=== PATIENT | female | born 1975 | race African-American/Black ===

== ENCOUNTER 2017-06-05 11:25 | Emergency (ER) | payer OTHER ==
[2017-06-05 11:58] VITALS: BP 121/82
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
--- NOTE | 2017-06-05 14:02 | XRay Report ---
LUMBOSACRAL SPINE, 3 VIEWS: History: Back pain Findings: The vertebral bodies, disk spaces and posterior elements are intact. No compression deformity or malalignment. Mild degenerative changes are noted. The SI joints are symmetric and unremarkable. Impression: 1. No evidence for acute injury to the lumbar spine.
== END 2017-06-05 14:15 | disposition home or self-care (01) ==
LOC: ED 11:25
DX: S39.012A Strain of muscle, fascia and tendon of lower back, initial encounter (principal); V49.49XA Driver injured in collision with other motor vehicles in traffic accident, initial encounter; Y93.89 Activity, other specified; Y92.89 Other specified places as the place of occurrence of the external cause; Y99.8 Other external cause status
CPT/HCPCS: 72100; 99283

== ENCOUNTER 2020-01-31 07:44 | Inpatient (IN) | payer BC, OTHER, SELFPAY ==
--- NOTE | 2020-01-31 09:21 | Emergency Department Report ---
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 11 days ago patient developed fever that was not breaking with Tylenol. Patient went to a [facility] testing site on January 22 and had a positive COVID test at that time. Patient has been self isolating from family members. Yesterday she developed worsening cough productive of th ick sputum with dyspnea. Today she complains of significant dyspnea with walking even 10 steps. Patient noted to have a room air saturation 89% during initial triage. Patient also having intermittent right-sided rib pain described as a tightness patient denies past medical history and is a non-smoker - Related Data Home Medications Medication Instructions Recorded Confirmed Last Taken No Known Home Medications [No 01/31/20 01/31/20 Unknown Reported Home Medications] Allergies Allergy/AdvReac Type Severity Reaction Status Date / Time No Known Allergies Allergy Unverified 01/31/20 08:17 ED Review of Systems ROS: Stated complaint: POSITIVE COVID 19 /COUGH Other details as noted in HPI Comment: All other systems reviewed and negative ED Past Medical Hx - Past Medical History Previous Medical History?: No - Surgical History Past Surgical History?: No - Social History Smoking Status: Never Smoker Substance Use Type: None - Medications Home Medications: Home Medications Medication Instructions Recorded Confirmed Last Taken Type No Known Home Medications [No 01/31/20 01/31/20 Unknown History Reported Home Medications] ED Physical Exam - General Limitations: No Limitations - Other Other exam information: General: No acute distress Head: Atraumatic Eyes: normal appearance ENT: Moist mucous membranes Neck: Normal appearance, no midline tenderness Chest: Clear to auscultation bilaterally CV: Regular rate and rhythm Abdomen: Soft, normal bowel sounds, nontender, nondistended, no rebound or guarding Back: Normal inspection Extremity: Normal inspection, full range of motion Neuro: Alert O x 3, no facial asymmetry, speech clear, no gross motor sensory deficit Psych: Appropriate behavior Skin: No rash ED Course Vital Signs 01/31/20 01/31/20 01/31/20 08:00 08:30 09:30 Temperature 98.7 F Pulse Rate 107 H 98 H 94 H Respiratory 18 25 H 29 H Rate Blood Pressure 108/65 108/75 110/74 O2 Sat by Pulse 97 98 96 Oximetry 01/31/20 01/31/20 01/31/20 10:00 10:30 11:00 Temperature Pulse Rate 90 97 H 85 Respiratory 29 H 16 30 H Rate Blood Pressure 112/68 112/68 108/67 O2 Sat by Pulse 98 98 97 Oximetry ED Medical Decision Making - Lab Data Result diagrams: 01/31/20 09:47 01/31/20 09:47 Lab Results 01/31/20 01/31/20 01/31/20 Range/Units 09:47 09:47 09:47 WBC 5.6 (4.5-11.0) K/mm3 RBC 4.81 (3.65-5.03) M/mm3 Hgb 12.4 (10.1-14.3) gm/dl Hct 38.0 (30.3-42.9) % MCV 79 (79-97) fl MCH 26 L (28-32) pg MCHC 33 (30-34) % RDW 14.6 (13.2-15.2) % Plt Count 301 (140-440) K/mm3 Lymph % (Auto) 11.6 L (13.4-35.0) % [place] % (Auto) 5.4 (0.0-7.3) % Eos % (Auto) 0.0 (0.0-4.3) % Baso % (Auto) 1.1 (0.0-1.8) % Lymph # 0.6 L (1.2-5.4) K/mm3 [place] # 0.3 (0.0-0.8) K/mm3 Eos # 0.0 (0.0-0.4) K/mm3 Baso # 0.1 (0.0-0.1) K/mm3 Seg Neutrophils % 81.9 H (40.0-70.0) % Seg Neutrophils # 4.6 (1.8-7.7) K/mm3 D-Dimer 354.34 H (0-234) ng/mlDDU Sodium 134 L (137-145) mmol/L Potassium 3.6 (3.6-5.0) mmol/L Chloride 98.0 (98-107) mmol/L Carbon Dioxide 22 (22-30) mmol/L Anion Gap 18 mmol/L BUN 7 (7-17) mg/dL Creatinine 0.7 (0.7-1.2) mg/dL Estimated GFR > 60 ml/min BUN/Creatinine Ratio 10 % Glucose 115 H (65-100) mg/dL Calcium 8.6 (8.4-10.2) mg/dL Ferritin (13.0-400.0) ng/mL Lactate Dehydrogenase 378 H (91-180) units/L C-Reactive Protein 21.30 H (0.00-1.30) mg/dL HCG, Qual (Negative) 01/31/20 01/31/20 Range/Units 09:47 09:47 WBC (4.5-11.0) K/mm3 RBC (3.65-5.03) M/mm3 Hgb (10.1-14.3) gm/dl Hct (30.3-42.9) % MCV (79-97) fl MCH (28-32) pg MCHC (30-34) % RDW (13.2-15.2) % Plt Count (140-440) K/mm3 Lymph % (Auto) (13.4-35.0) % [place] % (Auto) (0.0-7.3) % Eos % (Auto) (0.0-4.3) % Baso % (Auto) (0.0-1.8) % Lymph # (1.2-5.4) K/mm3 [place] # (0.0-0.8) K/mm3 Eos # (0.0-0.4) K/mm3 Baso # (0.0-0.1) K/mm3 Seg Neutrophils % (40.0-70.0) % Seg Neutrophils # (1.8-7.7) K/mm3 D-Dimer (0-234) ng/mlDDU Sodium (137-145) mmol/L Potassium (3.6-5.0) mmol/L Chloride (98-107) mmol/L Carbon Dioxide (22-30) mmol/L Anion Gap mmol/L BUN (7-17) mg/dL Creatinine (0.7-1.2) mg/dL Estimated GFR ml/min BUN/Creatinine Ratio % Glucose (65-100) mg/dL Calcium (8.4-10.2) mg/dL Ferritin 645.8 H (13.0-400.0) ng/mL Lactate Dehydrogenase (91-180) units/L C-Reactive Protein (0.00-1.30) mg/dL HCG, Qual Negative (Negative) - Radiology Data Radiology results: report reviewed, image reviewed (cxr: b/l infiltrates) CHEST 1 VIEW INDICATION: covid + hypoxia, sob. COMPARISON: None FINDINGS: Support devices: None. Heart: Within normal limits. Lungs/Pleura: There is poor inspiration. Subtle patchy bilateral airspace densities are identified concerning for atypical pneumonia or viral infection. No consolidation, large pleural effusion or pneumothorax. Additional findings: None. IMPRESSION: Bilateral patchy infiltrates as described. 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 Positive COVID test 1 week ago with worsening dyspnea and hypoxia upon ED presentation. Chest x-ray shows bilateral infiltrates. COVID order set ordered. Cultures pending. Rocephin and azithromycin ordered. Hospitalist informed for admission. Dr. Mendez request admission to Dr. BAUTISTA - Differential Diagnosis Pneumonia, COVID Critical Care Time: No Critical care attestation.: If time is entered above; I have spent that time in minutes in the direct care of this critically ill patient, excluding procedure time. ED Disposition Clinical Impression: COVID-19, Bilateral pulmonary infiltrates on CXR, Hypoxia Disposition: OP ADMIT IP TO THIS HOSP Is pt being admited?: Yes Condition: Stable Time of Disposition: 10:43 (Dr Bautista/hosp)
[2020-01-31 10:08] LABS: Basophils # (Auto) 0.1 K/mm3 (0.0-0.1); Basophils % (Auto) 1.1 % (0.0-1.8); Hemoglobin 12.4 gm/dl (10.1-14.3); Lymphocytes # (Auto) 0.6 K/mm3 (1.2-5.4); Lymphocytes % (Auto) 11.6 % (13.4-35.0); Mean Corpuscular HGB Conc 33 % (30-34); Mean Corpuscular Volume 79 fl (79-97); Monocytes # (Auto) 0.3 K/mm3 (0.0-0.8); Monocytes % (Auto) 5.4 % (0.0-7.3); Platelet Count 301 K/mm3 (140-440); Red Blood Count 4.81 M/mm3 (3.65-5.03); Red Cell Distribution Width 14.6 % (13.2-15.2)
[2020-01-31 10:22] LABS: BUN/Creatinine Ratio 10; Blood Urea Nitrogen 7 mg/dL (7-17); Calcium 8.6 mg/dL (8.4-10.2); Hemolysis Index 1
--- NOTE | 2020-01-31 10:47 | History and Physical Report ---
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 who presented to the hospital with complaint of shortness of breath worse with exertion according to her "I cannot walk 10 steps without getting significantly short of breath or recurrent cough. She reports that her symptoms started 11 days ago after she developed fever that did not resolve with Tylenol she went ahead and got tested at the [facility] testing site for COVID-19 on January 22 and tested positive she self isolated from family but unfortunately has been having worsening cough with productive sputum and ass ociated diarrhea. She reports that following the diarrhea she did take 2 tablets of ciprofloxacin with no resolution. She denies any chest pain nausea vomiting she denies any chills but reports fever. She does have intermittent right-sided pain with the cough and she states that when she coughs it feels like she is in unbearable pain. Is a lifelong non-smoker. Past History Past Medical History: No medical history Past Surgical History: No surgical history Social history: , full code. denies: smoking, alcohol abuse Family history: no significant family history Medications and Allergies Allergies Allergy/AdvReac Type Severity Reaction Status Date / Time No Known Allergies Allergy Unverified 01/31/20 08:17 Home Medications Medication Instructions Recorded Confirmed Last Taken Type No Known Home Medications [No 01/31/20 01/31/20 Unknown History Reported Home Medications] Active Meds: Active Medications Ceftriaxone Sodium (Rocephin/Ns 2 Gm/100 Ml) 2 gm in 100 mls @ 200 mls/hr IV Q24HR DENICE; Protocol Azithromycin 500 mg/ Sodium (Chloride) 250 mls @ 250 mls/hr IV Q24HR DENICE; Protocol Review of Systems Constitutional: fever, fatigue, weakness Cardiovascular: chest pain, shortness of breath, dyspnea on exertion Respiratory: cough with sputum, shortness of breath, dyspnea on exertion Exam - Physical Exam Narrative exam: VITAL SIGNS: Reviewed. GENERAL: The patient appears normally developed, appears lethargic and ill. Vital signs as documented. HEAD: No signs of head trauma. EYES: Pupils are equal. Extraocular motions intact. EARS: Hearing grossly intact. MOUTH: Oropharynx is normal. NECK: No adenopathy, no JVD. CHEST: Chest with clear breath sounds bilaterally. Otherwise shallow breaths. No wheezes, rales, or rhonchi. CARDIAC: Regular rate and rhythm. S1 and S2, without murmurs, gallops, or rubs. VASCULAR: No Edema. Peripheral pulses normal and equal in all extremities. ABDOMEN: Soft, non tender and non distended. No rebound or guarding, and no masses palpated. Bowel Sounds normal. MUSCULOSKELETAL: Good range of motion of all major joints. Extremities without clubbing, cyanosis or edema. NEUROLOGIC EXAM: Alert and oriented x 3 No focal sensory or strength deficits. Speech normal. Follows commands. PSYCHIATRIC: Mood normal. SKIN: detial exam as documented in skin assessment - Constitutional Vitals: Temp Pulse Resp BP Pulse Ox 98.7 F 94 H 29 H 110/74 96 01/31/20 08:00 01/31/20 09:30 01/31/20 09:30 01/31/20 09:30 01/31/20 09:30 Results - Labs CBC & Chem 7: 01/31/20 09:47 01/31/20 09:47 Labs: Laboratory Last Values WBC 5.6 K/mm3 (4.5-11.0) 01/31/20 09:47 RBC 4.81 M/mm3 (3.65-5.03) 01/31/20 09:47 Hgb 12.4 gm/dl (10.1-14.3) 01/31/20 09:47 Hct 38.0 % (30.3-42.9) 01/31/20 09:47 MCV 79 fl (79-97) 01/31/20 09:47 MCH 26 pg (28-32) L 01/31/20 09:47 MCHC 33 % (30-34) 01/31/20 09:47 RDW 14.6 % (13.2-15.2) 01/31/20 09:47 Plt Count 301 K/mm3 (140-440) 01/31/20 09:47 Lymph % (Auto) 11.6 % (13.4-35.0) L 01/31/20 09:47 [place] % (Auto) 5.4 % (0.0-7.3) 01/31/20 09:47 Eos % (Auto) 0.0 % (0.0-4.3) 01/31/20 09:47 Baso % (Auto) 1.1 % (0.0-1.8) 01/31/20 09:47 Lymph # 0.6 K/mm3 (1.2-5.4) L 01/31/20 09:47 [place] # 0.3 K/mm3 (0.0-0.8) 01/31/20 09:47 Eos # 0.0 K/mm3 (0.0-0.4) 01/31/20 09:47 Baso # 0.1 K/mm3 (0.0-0.1) 01/31/20 09:47 Seg Neutrophils % 81.9 % (40.0-70.0) H 01/31/20 09:47 Seg Neutrophils # 4.6 K/mm3 (1.8-7.7) 01/31/20 09:47 D-Dimer 354.34 ng/mlDDU (0-234) H 01/31/20 09:47 Sodium 134 mmol/L (137-145) L 01/31/20 09:47 Potassium 3.6 mmol/L (3.6-5.0) 01/31/20 09:47 Chloride 98.0 mmol/L (98-107) 01/31/20 09:47 Carbon Dioxide 22 mmol/L (22-30) 01/31/20 09:47 Anion Gap 18 mmol/L 01/31/20 09:47 BUN 7 mg/dL (7-17) 01/31/20 09:47 Creatinine 0.7 mg/dL (0.7-1.2) 01/31/20 09:47 Estimated GFR > 60 ml/min 01/31/20 09:47 BUN/Creatinine Ratio 10 % 01/31/20 09:47 Glucose 115 mg/dL (65-100) H 01/31/20 09:47 Calcium 8.6 mg/dL (8.4-10.2) 01/31/20 09:47 Ferritin 645.8 ng/mL (13.0-400.0) H 01/31/20 09:47 Lactate Dehydrogenase 378 units/L (91-180) H 01/31/20 09:47 C-Reactive Protein 21.30 mg/dL (0.00-1.30) H 01/31/20 09:47 HCG, Qual Negative (Negative) 05/04/20 09:47 - Imaging and Cardiology Chest x-ray: image reviewed (Bilateral pulmonary infiltrate) Assessment and Plan Assessment and plan: 44-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 11 days ago patient developed fever that was not breaking with Tylenol. Patient went to a [facility] testing site on January 22 and had a positive COVID test at that time. Patient has been self isolating from family members. Yesterday she developed worsening cough productive of thick sputum with dyspnea. Today she complains of sign ificant dyspnea with walking even 10 steps. Patient noted to have a room air saturation 89% during initial triage. Patient also having intermittent right- sided rib pain described as a tightness patient denies past medical history and is a non-smoker COVID 19+ Acute respiratory failure with hypoxia secondary to COVID-19 Acute bilateral viral pneumonia Diarrhea likely secondary to COVID-19 which is also a gastro-pulmonary virus, rule out C. difficile Pleuritic chest pain related to cough-costochondritis Plan Admit to [facility] COVID 19 UNIT COVID19 PROTOCOL AND LABS Q48 HRS CHECK COAGULATION PROFILE PULMONARY AND ID CONSULT OXYGEN PAIN CONTROL R/O C.DIFF DVT/GI PROPHY PLAN OF CARE DISCUSSED WITH THE PATIENT CARE DISCUSSED WITH CONSULTANTS
[2020-01-31] MEDS ORDERED: ONDANSETRON 4 MG/2 ML INJ IV PRN (10:48)
[2020-01-31] MEDS ORDERED: DEXTROSE 50% IN WATER (25GM) 50 ML SYRINGE IV PRN (10:48)
[2020-01-31] MEDS ORDERED: ACETAMINOPHEN 325 MG TAB PO PRN (10:48)
--- NOTE | 2020-01-31 10:48 | XRay Report ---
CHEST 1 VIEW INDICATION: covid + hypoxia, sob. COMPARISON: None FINDINGS: Support devices: None. Heart: Within normal limits. Lungs/Pleura: There is poor inspiration. Subtle patchy bilateral airspace densities are identified co ncerning for atypical pneumonia or viral infection. No consolidation, large pleural effusion or pneum othorax. Additional findings: None. IMPRESSION: Bilateral patchy infiltrates as described. Signer Name: Sabas Dias Jr, MD Signed: 01/31/2020 10:43 AM Workstation Name: [id number]
[2020-01-31] MEDS ORDERED: AZITHROMYCIN 500 MG in SODIUM CHLORIDE 0.9% 250ML 250 ML IV SCH (11:00)
[2020-01-31] MEDS ORDERED: cefTRIAXone/NS 2 GM/100 ML 2 GM/100 ML BAG IV SCH (11:00)
[2020-01-31] MEDS ORDERED: LOPERAMIDE 2 MG CAP PO PRN (11:21)
[2020-01-31] MEDS ORDERED: cefTRIAXone/NS 2 GM/100 ML 2 GM/100 ML BAG IV ONE (11:38)
[2020-01-31] MEDS: FAMOTIDINE 20 MG TAB PO SCH ×2 (12:37→22:08)
[2020-01-31] MEDS: guaiFENesin DM 200/20 MG ORAL LIQD 10 ML PO PRN (13:00)
--- NOTE | 2020-01-31 14:05 | Consultation ---
History of Present Illness - Reason for Consult Consult date: 01/31/20 - History of Present Illness 44-year-old female no past medical history admitted to the hospital due to a recent COVID-19 test that was positive. She complains of worsening shortness of breath and fever which began approximately 11 days prior to admission. 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 Since her positive test she has been self isolate from family members. The day prior to admission she developed worsening cough with sputum production which prompted her presentation to the hospital. She was found to be hypoxic on room air, and as such was admitted. Febrile to 100.6 with a white count of 6 and an associated lymphopenia. She is currently receiving ceftriaxone and azithromycin. Blood cultures currently pending. Imaging personally reviewed: Chest x-ray: Bilateral patchy infiltrates Review of Systems: Bold if positive, otherwise negative General: fevers, chills, rigors HEENT: visual disturbance, diplopia, eye pain Respiratory: cough, sputum, hemoptysis, shortness of breath Cardiovascular: chest pain, syncope Gastrointestinal: nausea, vomiting, diarrhea, abdominal pain Genitourinary: dysuria, hematuria, flank pain Musculoskeletal: neck pain, back pain, joint pain, edema Neurologic: headaches, seizures Hematologic: easy bruising or bleeding Endocrine: night sweats, acute weight loss Skin: rash, jaundice, redness Psychiatric: suicidal, homicidal ideation Past History Past Medical History: No medical history Past Surgical History: No surgical history Social history: no significant social history Family history: no significant family history Medications and Allergies Allergies Allergy/AdvReac Type Severity Reaction Status Date / Time No Known Allergies Allergy Unverified 01/31/20 08:17 Home Medications Medication Instructions Recorded Confirmed Last Taken Type No Known Home Medications [No 01/31/20 01/31/20 Unknown History Reported Home Medications] Active Meds: Active Medications Acetaminophen (Tylenol) 650 mg PO Q4H PRN PRN Reason: Pain MILD(1-3)/Fever >100.5/HASKINS Albuterol (Proventil) 2.5 mg IH Q4HRT PRN PRN Reason: Shortness Of Breath Azithromycin (Zithromax) 500 mg PO QDAY DENICE Stop: 02/04/20 10:01 Dextrose (D50w (25gm) Syringe) 50 ml IV Q30MIN PRN; Protocol PRN Reason: Hypoglycemia Famotidine (Pepcid) 20 mg PO BID [facility] Last Admin: 01/31/20 12:37 Dose: 20 mg Documented by: Guaifenesin (Guaifenesin Dm Syrup) 10 ml PO Q4H PRN PRN Reason: Cough Ceftriaxone Sodium (Rocephin/Ns 2 Gm/100 Ml) 2 gm in 100 mls @ 200 mls/hr IV Q24HR DENICE; Protocol Last Admin: 01/31/20 11:42 Dose: 200 mls/hr Documented by: Azithromycin 500 mg/ Sodium (Chloride) 250 mls @ 250 mls/hr IV Q24HR DENICE; Protocol Stop: 01/31/20 20:00 Last Admin: 01/31/20 12:36 Dose: 250 mls/hr Documented by: Loperamide HCl (Imodium) 2 mg PO Q2H PRN PRN Reason: Diarrhea Ondansetron HCl (Zofran) 4 mg IV Q4H PRN PRN Reason: Nausea And Vomiting Sodium Chloride (Sodium Chloride Flush Syringe 10 Ml) 10 ml IV BID [facility] Sodium Chloride (Sodium Chloride Flush Syringe 10 Ml) 10 ml IV PRN PRN PRN Reason: LINE FLUSH Physical Examination - Physical Exam Narrative exam: Physical exam deferred due to PPE conservation strategy, reviewed in chart. - Constitutional Vitals: Vital Signs Temp Pulse Resp BP Pulse Ox 100.6 F H 98 H 20 117/74 96 01/31/20 12:26 01/31/20 12:26 01/31/20 12:26 01/31/20 12:26 01/31/20 12:26 Temperature -Last 24 Hours Temperature 100.6 F Temperature 98.7 F Results - Labs CBC & Chem 7: 01/31/20 09:47 01/31/20 09:47 Labs: Abnormal lab results 01/31/20 01/31/20 01/31/20 Range/Units 09:47 09:47 09:47 MCH 26 L (28-32) pg Lymph % (Auto) 11.6 L (13.4-35.0) % Lymph # 0.6 L (1.2-5.4) K/mm3 Seg Neutrophils % 81.9 H (40.0-70.0) % D-Dimer 354.34 H (0-234) ng/mlDDU Sodium 134 L (137-145) mmol/L Glucose 115 H (65-100) mg/dL Ferritin (13.0-400.0) ng/mL Lactate Dehydrogenase 378 H (91-180) units/L C-Reactive Protein 21.30 H (0.00-1.30) mg/dL 01/31/20 Range/Units 09:47 MCH (28-32) pg Lymph % (Auto) (13.4-35.0) % Lymph # (1.2-5.4) K/mm3 Seg Neutrophils % (40.0-70.0) % D-Dimer (0-234) ng/mlDDU Sodium (137-145) mmol/L Glucose (65-100) mg/dL Ferritin 645.8 H (13.0-400.0) ng/mL Lactate Dehydrogenase (91-180) units/L C-Reactive Protein (0.00-1.30) mg/dL Assessment and Plan Cultures: Blood culture 01/31/2020 pending A/P: 44-year-old female no past medical history admitted with COVID-19 #COVID-19: Patient with normal profile and previously diagnosed COVID-19. Recommend stopping antibiotics at this time. Continue supportive care for now given that she has minimal oxygen requirements. Her laboratory markers are elevated, so if she starts requiring more oxygen therapy in a short period of time will consider Actemra. Please ensure anticoagulation in place. Recs: -Continue supportive care COVID-19 -Monitor oxygen requirements, if they double to 4 L within 12 hours will consider Actemra at that time. -Follow COVID-19 labs to include LDH, ferritin, CRP, d-dimer every 48 hours to monitor for disease progression Thank you for the consult, we will continue to follow. MD Padmini [facility] M: [phone] O: [phone] F: [phone]
[2020-01-31 14:27] LABS: C-Reactive Protein 22.6 mg/dL (0.00-1.30)
[2020-01-31] MEDS: ALBUTEROL 2.5 MG/3 ML NEBU IH PRN (14:44)
[2020-02-01] MEDS: ALBUTEROL 2.5 MG/3 ML NEBU IH PRN (01:26)
[2020-02-01] MEDS: guaiFENesin DM 200/20 MG ORAL LIQD 10 ML PO PRN ×3 (01:43→21:52)
[2020-02-01 05:10] LABS: Basophils % (Auto) 0.3 % (0.0-1.8); Hematocrit 32.5 % (30.3-42.9); Hemoglobin 10.7 gm/dl (10.1-14.3); Lymphocytes # (Auto) 1.1 K/mm3 (1.2-5.4); Lymphocytes % (Auto) 19.3 % (13.4-35.0); Mean Corpuscular HGB Conc 33 % (30-34); Mean Corpuscular Volume 78 fl (79-97); Monocytes # (Auto) 0.5 K/mm3 (0.0-0.8); Monocytes % (Auto) 8.8 % (0.0-7.3); Platelet Count 307 K/mm3 (140-440); Red Blood Count 4.18 M/mm3 (3.65-5.03); Red Cell Distribution Width 14.4 % (13.2-15.2)
[2020-02-01 05:24] LABS: BUN/Creatinine Ratio 12; Blood Urea Nitrogen 6 mg/dL (7-17); Calcium 8.3 mg/dL (8.4-10.2); Hemolysis Index 2
--- NOTE | 2020-02-01 08:09 | Progress Note ---
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 11 days ago patient developed fever that was not breaking with Tylenol. Patient went to a [facility] site on January 22 and had a positive COVID test at that time. Patient has been self isolating from family members. Yesterday she developed worsening cough productive of thick sputum with dyspnea. Today she complains of significant dyspnea with walking even 10 steps. Patient noted to have a room air saturation 89% during initial triage. Patient also having intermittent right-sided rib pain described as a tightness patient denies past medical history and is a non-smoker --Positive COVID test today --COVID 19+[done outside the hospital] Contact and droplet isolation Follow inflammatory markers per protocol Coagulation profile Pulmonary and ID following Supportive care --Acute hypoxic respiratory failure ; Oxygen titrate O2 sats to more than 90% Supportive care, pulmonary following --Acute bilateral viral pneumonia; IV fluids, oxygen, supportive care --Pleuritic chest pain related to cough-costochondritis and viral pneumonia Pain management and oxygen --Diarrhea probably secondary to COVID-19 which is also a gastro-pulmonary virus, rule out C. difficile --Mild hypotension; blood pressures in the lower range Encourage plenty oral fluids, IV fluids, monitor closely --DVT prophylaxis; Lovenox Monitor closely and adjust management as needed Follow inflammatory markers Follow consultants evaluation and recommendations Critical care time 35 minutes History Interval history: Patient seen and examined in isolation room Isolation precautions observed I used my PPE while examining the patient Patient was initially positive outside the hospital Admitted with symptoms COVID PCR test repeated today, reported positive Hospitalist Physical - Constitutional Vitals: Temp Pulse Resp BP Pulse Ox 97.3 F L 84 20 97/63 95 02/01/20 05:49 02/01/20 05:49 02/01/20 05:49 02/01/20 05:49 02/01/20 05:49 General appearance: Present: mild distress, well-nourished - EENT Eyes: Present: PERRL, EOM intact - Neck Neck: Present: supple, normal ROM - Respiratory Respiratory effort: normal Respiratory: bilateral: diminished, rhonchi, negative: rales, wheezing - Cardiovascular Rhythm: regular Heart Sounds: Present: S1 & S2 - Extremities Extremities: no ischemia, No edema - Abdominal General gastrointestinal: soft, non-tender, non-distended, normal bowel sounds - Integumentary Integumentary: Present: clear, warm - Psychiatric Psychiatric: appropriate mood/affect, cooperative - Neurologic Neurologic: moves all extremities Results - Labs CBC & Chem 7: 02/01/20 04:17 02/01/20 04:17 Labs: Laboratory Last Values WBC 5.6 K/mm3 (4.5-11.0) 02/01/20 04:17 RBC 4.18 M/mm3 (3.65-5.03) 02/01/20 04:17 Hgb 10.7 gm/dl (10.1-14.3) 02/01/20 04:17 Hct 32.5 % (30.3-42.9) 02/01/20 04:17 MCV 78 fl (79-97) L 02/01/20 04:17 MCH 26 pg (28-32) L 02/01/20 04:17 MCHC 33 % (30-34) 02/01/20 04:17 RDW 14.4 % (13.2-15.2) 02/01/20 04:17 Plt Count 307 K/mm3 (140-440) 02/01/20 04:17 Lymph % (Auto) 19.3 % (13.4-35.0) 02/01/20 04:17 Isabel[place] % (Auto) 8.8 % (0.0-7.3) H 02/01/20 04:17 Eos % (Auto) 0.0 % (0.0-4.3) 02/01/20 04:17 Baso % (Auto) 0.3 % (0.0-1.8) 02/01/20 04:17 Lymph # 1.1 K/mm3 (1.2-5.4) L 02/01/20 04:17 Isabela # 0.5 K/mm3 (0.0-0.8) 02/01/20 04:17 Eos # 0.0 K/mm3 (0.0-0.4) 02/01/20 04:17 Baso # 0.0 K/mm3 (0.0-0.1) 02/01/20 04:17 Seg Neutrophils % 71.6 % (40.0-70.0) H 02/01/20 04:17 Seg Neutrophils # 4.0 K/mm3 (1.8-7.7) 02/01/20 04:17 D-Dimer 363.09 ng/mlDDU (0-234) H 01/31/20 12:50 Sodium 135 mmol/L (137-145) L 02/01/20 04:17 Potassium 3.4 mmol/L (3.6-5.0) L 02/01/20 04:17 Chloride 97.7 mmol/L (98-107) L 02/01/20 04:17 Carbon Dioxide 24 mmol/L (22-30) 02/01/20 04:17 Anion Gap 17 mmol/L 02/01/20 04:17 BUN 6 mg/dL (7-17) L 02/01/20 04:17 Creatinine 0.5 mg/dL (0.7-1.2) L 02/01/20 04:17 Estimated GFR > 60 ml/min 02/01/20 04:17 BUN/Creatinine Ratio 12 % 02/01/20 04:17 Glucose 105 mg/dL (65-100) H 02/01/20 04:17 Calcium 8.3 mg/dL (8.4-10.2) L 02/01/20 04:17 Ferritin 571.5 ng/mL (13.0-400.0) H 02/01/20 04:17 Lactate Dehydrogenase 346 units/L (91-180) H 02/01/20 04:17 C-Reactive Protein 18.40 mg/dL (0.00-1.30) H 02/01/20 04:17 Procalcitonin 0.13 ng/mL (<0.15) 01/31/20 12:50 HCG, Qual Negative (Negative) 01/31/20 09:47 Microbiology: Microbiology 01/31/20 12:50 Peripheral/Venous Blood Culture - Preliminary Culture in Progress 01/31/20 09:47 Peripheral/Venous Blood Culture - Preliminary Culture in Progress 01/31/20 09:47 Peripheral/Venous Blood Culture - Preliminary Culture in Progress Vasquez/IV: Voiding Method Toilet IV Catheter Type [Left Hand] INT / Saline Lock Active Medications - Current Medications Current Medications: Generic Name Dose Route Start Last Admin Trade Name Freq PRN Reason Stop Dose Admin Acetaminophen 650 mg 01/31/20 10:48 Tylenol PO Q4H PRN Pain MILD(1-3)/Fever >100.5/HASKINS Albuterol 2.5 mg 01/31/20 10:48 02/01/20 01:26 Proventil IH 2.5 mg Q4HRT PRN Administration Shortness Of Breath Dextrose 50 ml 01/31/20 10:48 D50w (25gm) Syringe IV Q30MIN PRN Hypoglycemia Protocol Famotidine 20 mg 01/31/20 12:00 01/31/20 22:08 Pepcid PO 20 mg BID DENICE Administration Guaifenesin 10 ml 01/31/20 12:43 02/01/20 01:43 Guaifenesin Dm Syrup PO 10 ml Q4H PRN Administration Cough Hydrocodone Bit/Homatropine Methylb 10 ml 01/31/20 14:06 Hydromet PO Q6H PRN Cough Loperamide HCl 2 mg 01/31/20 11:21 Imodium PO Q2H PRN Diarrhea Ondansetron HCl 4 mg 01/31/20 10:48 Zofran IV Q4H PRN Nausea And Vomiting Sodium Chloride 10 ml 01/31/20 22:00 01/31/20 22:08 Sodium Chloride Flush Syringe 10 Ml IV 10 ml BID DENICE Administration Sodium Chloride 10 ml 01/31/20 10:48 Sodium Chloride Flush Syringe 10 Ml IV PRN PRN LINE FLUSH
[2020-02-01] MEDS: FAMOTIDINE 20 MG TAB PO SCH ×2 (09:19→21:51)
[2020-02-01] MEDS: SODIUM CHLORIDE 0.9% 1000 ML 1,000 ML IV SCH ×2 (09:20→18:41)
[2020-02-01] MEDS ORDERED: AZITHROMYCIN 250 MG TAB PO SCH (10:00)
--- NOTE | 2020-02-01 11:26 | Consultation ---
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 Per chart patient's test is a few weeks old as she tested positive and then isolated herself. She presents to the ED with worsening shortness of breath and chest tightness. All inflammatory markers were elevated on admission but appear to be trending down. Past History Past Medical History: No medical history Past Surgical History: No surgical history Social history: , full code. denies: smoking, alcohol abuse Family history: no significant family history Medications and Allergies Allergies Allergy/AdvReac Type Severity Reaction Status Date / Time No Known Allergies Allergy Unverified 01/31/20 08:17 Home Medications Medication Instructions Recorded Confirmed Last Taken Type No Known Home Medications [No 01/31/20 01/31/20 Unknown History Reported Home Medications] Active Meds: Active Medications Acetaminophen (Tylenol) 650 mg PO Q4H PRN PRN Reason: Pain MILD(1-3)/Fever >100.5/HASKINS Albuterol (Proventil) 2.5 mg IH Q4HRT PRN PRN Reason: Shortness Of Breath Last Admin: 02/01/20 01:26 Dose: 2.5 mg Documented by: Dextrose (D50w (25gm) Syringe) 50 ml IV Q30MIN PRN; Protocol PRN Reason: Hypoglycemia Enoxaparin Sodium (Enoxaparin) 40 mg SUB-Q QDAY@2200 DENICE Famotidine (Pepcid) 20 mg PO BID [facility] Last Admin: 02/01/20 09:19 Dose: 20 mg Documented by: Guaifenesin (Guaifenesin Dm Syrup) 10 ml PO Q4H PRN PRN Reason: Cough Last Admin: 02/01/20 09:19 Dose: 10 ml Documented by: Hydrocodone Bit/Homatropine Methylb (Hydromet) 10 ml PO Q6H PRN PRN Reason: Cough Sodium Chloride (Nacl 0.9% 1000 Ml) 1,000 mls @ 100 mls/hr IV DIRECT DENICE Last Admin: 02/01/20 09:20 Dose: 100 mls/hr Documented by: Loperamide HCl (Imodium) 2 mg PO Q2H PRN PRN Reason: Diarrhea Ondansetron HCl (Zofran) 4 mg IV Q4H PRN PRN Reason: Nausea And Vomiting Sodium Chloride (Sodium Chloride Flush Syringe 10 Ml) 10 ml IV BID [facility] Last Admin: 02/01/20 09:20 Dose: 10 ml Documented by: Sodium Chloride (Sodium Chloride Flush Syringe 10 Ml) 10 ml IV PRN PRN PRN Reason: LINE FLUSH Review of Systems All systems: negative Physical Examination Vital signs: Vital Signs Temp Pulse Resp BP Pulse Ox 98.7 F 107 H 18 108/65 97 01/31/20 08:00 01/31/20 08:00 01/31/20 08:00 01/31/20 08:00 01/31/20 08:00 General appearance: no acute distress, alert Eyes: non-icteric ENT: oropharynx moist Neck: supple, no JVD Effort: mildly labored Ascultation: Bilateral: clear Percussion: Bilateral: not dull Tactile fremitus: Bilateral: normal Cardiovascular: regular rate and rhythm Results - Laboratory Findings CBC and BMP: 02/01/20 04:17 02/01/20 04:17 PT/INR, D-dimer D-Dimer 363.09 ng/mlDDU (0-234) H 01/31/20 12:50 Abnormal lab findings: Abnormal Labs 01/31/20 01/31/20 01/31/20 09:47 09:47 09:47 MCV MCH 26 L Lymph % (Auto) 11.6 L [place] % (Auto) Lymph # 0.6 L Seg Neutrophils % 81.9 H D-Dimer 354.34 H Sodium 134 L Potassium Chloride BUN Creatinine Glucose 115 H Calcium Ferritin Lactate Dehydrogenase 378 H C-Reactive Protein 21.30 H 01/31/20 01/31/20 01/31/20 09:47 12:50 12:50 MCV MCH Lymph % (Auto) [place] % (Auto) Lymph # Seg Neutrophils % D-Dimer 363.09 H Sodium Potassium Chloride BUN Creatinine Glucose 112 H Calcium Ferritin 645.8 H Lactate Dehydrogenase 410 H C-Reactive Protein 22.60 H 01/31/20 02/01/20 02/01/20 12:50 04:17 04:17 MCV 78 L MCH 26 L Lymph % (Auto) [place] % (Auto) 8.8 H Lymph # 1.1 L Seg Neutrophils % 71.6 H D-Dimer Sodium 135 L Potassium 3.4 L Chloride 97.7 L BUN 6 L Creatinine 0.5 L Glucose 105 H Calcium 8.3 L Ferritin 624.5 H Lactate Dehydrogenase 346 H C-Reactive Protein 18.40 H 02/01/20 04:17 MCV MCH Lymph % (Auto) [place] % (Auto) Lymph # Seg Neutrophils % D-Dimer Sodium Potassium Chloride BUN Creatinine Glucose Calcium Ferritin 571.5 H Lactate Dehydrogenase C-Reactive Protein - Diagnostic Findings Chest x-ray: image reviewed (Poor inspiratory film) Assessment and Plan 44 y/o female with positive covid test and hypoxemia. 1. Continue periodic day proning and proning at night 2. Given her history of rib pain, maybe reasonable to consider weight based lovenox therapy with her as oppose to regular prophylactic dosing 3. Continue to monitor oxygen requirement closely. 4. No IVF's. encourage PO intake and try to run the patient closer to volume deplete side.
--- NOTE | 2020-02-01 13:06 | Progress Note ---
Assessment and Plan Cultures: Blood culture 01/31/2020 pending A/P: 44-year-old female no past medical history admitted with COVID-19 #COVID-19: Patient with normal profile and previously diagnosed COVID-19. Recommend stopping antibiotics at this time. Continue supportive care for now given that she has minimal oxygen requirements. Her laboratory markers are elevated, so if she starts requiring more oxygen therapy in a short period of time will consider Actemra. Please ensure anticoagulation in place. Recs: -Continue supportive care COVID-19 -Monitor oxygen requirements, if they double to 4 L within 12 hours will consider Actemra at that time. -Follow COVID-19 labs to include LDH, ferritin, CRP, d-dimer every 48 hours to monitor for disease progression - improving. -d-dimer slightly above 1.5x UL, as such would consider weight based anti-coag with Lovenox. Thank you for the consult, we will continue to follow. Ching Reed MD [facility] M: [phone] O: [phone] F: [phone] Subjective Date of service: 02/01/20 Interval history: Patient now afebrile, with decreasing inflammatory markers. No new issues at this time. Objective - Exam Narrative Exam: Physical exam deferred due to PPE conservation strategy, reviewed in chart. - Constitutional Vitals: Vital Signs Temp Pulse Resp BP Pulse Ox 99.7 F H 80 22 101/69 99 02/01/20 11:42 02/01/20 11:42 02/01/20 11:42 02/01/20 11:42 02/01/20 11:42 Temperature -Last 24 Hours Temperature 99.7 F Temperature 97.3 F Temperature 98.5 F Temperature 100.1 F - Labs CBC & Chem 7: 02/01/20 04:17 02/01/20 04:17 Labs: Abnormal lab results 01/31/20 01/31/20 01/31/20 Range/Units 12:50 12:50 12:50 MCV (79-97) fl MCH (28-32) pg [place] % (Auto) (0.0-7.3) % Lymph # (1.2-5.4) K/mm3 Seg Neutrophils % (40.0-70.0) % D-Dimer 363.09 H (0-234) ng/mlDDU Sodium (137-145) mmol/L Potassium (3.6-5.0) mmol/L Chloride (98-107) mmol/L BUN (7-17) mg/dL Creatinine (0.7-1.2) mg/dL Glucose 112 H (65-100) mg/dL Calcium (8.4-10.2) mg/dL Ferritin 624.5 H (13.0-400.0) ng/mL Lactate Dehydrogenase 410 H (91-180) units/L C-Reactive Protein 22.60 H (0.00-1.30) mg/dL 02/01/20 02/01/20 02/01/20 Range/Units 04:17 04:17 04:17 MCV 78 L (79-97) fl MCH 26 L (28-32) pg [place] % (Auto) 8.8 H (0.0-7.3) % Lymph # 1.1 L (1.2-5.4) K/mm3 Seg Neutrophils % 71.6 H (40.0-70.0) % D-Dimer (0-234) ng/mlDDU Sodium 135 L (137-145) mmol/L Potassium 3.4 L (3.6-5.0) mmol/L Chloride 97.7 L (98-107) mmol/L BUN 6 L (7-17) mg/dL Creatinine 0.5 L (0.7-1.2) mg/dL Glucose 105 H (65-100) mg/dL Calcium 8.3 L (8.4-10.2) mg/dL Ferritin 571.5 H (13.0-400.0) ng/mL Lactate Dehydrogenase 346 H (91-180) units/L C-Reactive Protein 18.40 H (0.00-1.30) mg/dL
[2020-02-01] MEDS: ENOXAPARIN 40 MG/0.4 ML INJ SUB-Q SCH (21:51)
[2020-02-02] MEDS: HYDROcodone/HOMATROPINE 5-1.5MG /5 ML ORAL LIQD UNIT DOSE PO PRN ×2 (00:16→23:54)
[2020-02-02] MEDS: guaiFENesin DM 200/20 MG ORAL LIQD 10 ML PO PRN (04:22)
[2020-02-02] MEDS: SODIUM CHLORIDE 0.9% 1000 ML 1,000 ML IV SCH (04:23)
[2020-02-02 05:15] LABS: Alanine Aminotransferase 80 units/L (7-56); Albumin 2.7 g/dL (3.9-5); BUN/Creatinine Ratio 10; Blood Urea Nitrogen 5 mg/dL (7-17); Calcium 7.9 mg/dL (8.4-10.2); Hemolysis Index 12
--- NOTE | 2020-02-02 08:43 | Progress Note ---
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 11 days ago patient developed fever that was not breaking with Tylenol. Patient went to a [facility] site on January 22 and had a positive COVID test at that time. Patient has been self isolating from family members. Yesterday she developed worsening cough productive of thick sputum with dyspnea. Today she complains of significant dyspnea with walking even 10 steps. Patient noted to have a room air saturation 89% during initial triage. Patient also having intermittent right-sided rib pain described as a tightness patient denies past medical history and is a non-smoker --Positive COVID test -02/01/2020 --Acute hypoxic respiratory failure ; Oxygen titrate O2 sats to more than 90% Supportive care, pulmonary following --COVID 19+[done outside the hospital] Rpt Covid 19 test positive Contact and droplet isolation Follow inflammatory markers per protocol Coagulation profile, Pulmonary and ID following Supportive care --Acute bilateral viral pneumonia; IV fluids, oxygen, supportive care --Pleuritic chest pain related to cough-costochondritis and viral pneumonia Pain management and oxygen --Diarrhea probably secondary to COVID-19 which is also a gastro-pulmonary virus, rule out C. difficile --Mild hypotension; blood pressures in the lower range Encourage plenty oral fluids, IV fluids, monitor closely --DVT prophylaxis; Lovenox Monitor closely and adjust management as needed History Interval history: Patient seen and examined in isolation room Isolation protocols, PPE protocols followed Patient feels slightly better still has some cough and shortness of breath Afebrile, vital signs reviewed Hospitalist Physical - Constitutional Vitals: Temp Pulse Resp BP Pulse Ox 98.4 F 75 18 109/71 94 02/02/20 04:22 02/02/20 04:22 02/02/20 04:22 02/02/20 04:22 02/02/20 04:22 General appearance: Present: no acute distress, well-nourished - EENT Eyes: Present: PERRL, EOM intact - Neck Neck: Present: supple, normal ROM - Respiratory Respiratory effort: normal Respiratory: bilateral: diminished, rhonchi, negative: rales, wheezing - Cardiovascular Rhythm: regular Heart Sounds: Present: S1 & S2 - Extremities Extremities: no ischemia, No edema - Abdominal General gastrointestinal: soft, non-tender, non-distended, normal bowel sounds - Integumentary Integumentary: Present: clear, warm - Psychiatric Psychiatric: appropriate mood/affect, cooperative - Neurologic Neurologic: moves all extremities Results - Labs CBC & Chem 7: 02/01/20 04:17 02/02/20 04:03 Labs: Laboratory Last Values WBC 5.6 K/mm3 (4.5-11.0) 02/01/20 04:17 RBC 4.18 M/mm3 (3.65-5.03) 02/01/20 04:17 Hgb 10.7 gm/dl (10.1-14.3) 02/01/20 04:17 Hct 32.5 % (30.3-42.9) 02/01/20 04:17 MCV 78 fl (79-97) L 02/01/20 04:17 MCH 26 pg (28-32) L 02/01/20 04:17 MCHC 33 % (30-34) 02/01/20 04:17 RDW 14.4 % (13.2-15.2) 02/01/20 04:17 Plt Count 307 K/mm3 (140-440) 02/01/20 04:17 Lymph % (Auto) 19.3 % (13.4-35.0) 02/01/20 04:17 [place] % (Auto) 8.8 % (0.0-7.3) H 02/01/20 04:17 Eos % (Auto) 0.0 % (0.0-4.3) 02/01/20 04:17 Baso % (Auto) 0.3 % (0.0-1.8) 02/01/20 04:17 Lymph # 1.1 K/mm3 (1.2-5.4) L 02/01/20 04:17 [place] # 0.5 K/mm3 (0.0-0.8) 02/01/20 04:17 Eos # 0.0 K/mm3 (0.0-0.4) 02/01/20 04:17 Baso # 0.0 K/mm3 (0.0-0.1) 02/01/20 04:17 Seg Neutrophils % 71.6 % (40.0-70.0) H 02/01/20 04:17 Seg Neutrophils # 4.0 K/mm3 (1.8-7.7) 02/01/20 04:17 D-Dimer 418.79 ng/mlDDU (0-234) H 02/02/20 04:03 Sodium 138 mmol/L (137-145) 02/02/20 04:03 Potassium 3.8 mmol/L (3.6-5.0) 02/02/20 04:03 Chloride 105.2 mmol/L (98-107) 02/02/20 04:03 Carbon Dioxide 22 mmol/L (22-30) 02/02/20 04:03 Anion Gap 15 mmol/L 02/02/20 04:03 BUN 5 mg/dL (7-17) L 02/02/20 04:03 Creatinine 0.5 mg/dL (0.7-1.2) L 02/02/20 04:03 Estimated GFR > 60 ml/min 02/02/20 04:03 BUN/Creatinine Ratio 10 % 02/02/20 04:03 Glucose 108 mg/dL (65-100) H 02/02/20 04:03 Calcium 7.9 mg/dL (8.4-10.2) L 02/02/20 04:03 Magnesium 2.50 mg/dL (1.7-2.3) H 02/02/20 04:03 Ferritin 571.5 ng/mL (13.0-400.0) H 02/01/20 04:17 Total Bilirubin 0.20 mg/dL (0.1-1.2) 02/02/20 04:03 AST 62 units/L (5-40) H 02/02/20 04:03 ALT 80 units/L (7-56) H 02/02/20 04:03 Alkaline Phosphatase 67 units/L (35-129) 02/02/20 04:03 Lactate Dehydrogenase 346 units/L (91-180) H 02/01/20 04:17 C-Reactive Protein 18.40 mg/dL (0.00-1.30) H 02/01/20 04:17 Total Protein 6.4 g/dL (6.3-8.2) 02/02/20 04:03 Albumin 2.7 g/dL (3.9-5) L 02/02/20 04:03 Albumin/Globulin Ratio 0.7 % 02/02/20 04:03 Procalcitonin 0.13 ng/mL (<0.15) 01/31/20 12:50 HCG, Qual Negative (Negative) 01/31/20 09:47 Coronavirus (PCR) Positive (Negative) A 02/01/20 07:00 Microbiology: Microbiology 01/31/20 12:50 Peripheral/Venous Blood Culture - Preliminary NO GROWTH AFTER 24 HOURS 01/31/20 09:47 Peripheral/Venous Blood Culture - Preliminary NO GROWTH AFTER 24 HOURS 01/31/20 09:47 Peripheral/Venous Blood Culture - Preliminary NO GROWTH AFTER 24 HOURS Vasquez/IV: Voiding Method Toilet IV Catheter Type [Left Hand] INT / Saline Lock Active Medications - Current Medications Current Medications: Generic Name Dose Route Start Last Admin Trade Name Freq PRN Reason Stop Dose Admin Acetaminophen 650 mg 01/31/20 10:48 Tylenol PO Q4H PRN Pain MILD(1-3)/Fever >100.5/HASKINS Albuterol 2.5 mg 01/31/20 10:48 02/01/20 01:26 Proventil IH 2.5 mg Q4HRT PRN Administration Shortness Of Breath Dextrose 50 ml 01/31/20 10:48 D50w (25gm) Syringe IV Q30MIN PRN Hypoglycemia Protocol Enoxaparin Sodium 40 mg 02/01/20 22:00 02/01/20 21:51 Enoxaparin SUB-Q 40 mg QDAY@2200 DENICE Administration Famotidine 20 mg 01/31/20 12:00 02/01/20 21:51 Pepcid PO 20 mg BID DENICE Administration Guaifenesin 10 ml 01/31/20 12:43 02/02/20 04:22 Guaifenesin Dm Syrup PO 10 ml Q4H PRN Administration Cough Hydrocodone Bit/Homatropine Methylb 10 ml 01/31/20 14:06 02/02/20 00:16 Hydromet PO 10 ml Q6H PRN Administration Cough Sodium Chloride 1,000 mls @ 100 mls/hr 02/01/20 08:30 02/02/20 04:23 Nacl 0.9% 1000 Ml IV 100 mls/hr DIRECT DENICE Administration Loperamide HCl 2 mg 01/31/20 11:21 Imodium PO Q2H PRN Diarrhea Ondansetron HCl 4 mg 01/31/20 10:48 Zofran IV Q4H PRN Nausea And Vomiting Sodium Chloride 10 ml 01/31/20 22:00 02/01/20 21:51 Sodium Chloride Flush Syringe 10 Ml IV 10 ml BID DENICE Administration Sodium Chloride 10 ml 01/31/20 10:48 Sodium Chloride Flush Syringe 10 Ml IV PRN PRN LINE FLUSH
[2020-02-02] MEDS: FAMOTIDINE 20 MG TAB PO SCH ×2 (10:18→21:52)
--- NOTE | 2020-02-02 12:37 | Progress Note ---
Assessment and Plan 44 y/o female with positive covid test and hypoxemia. 02/02/2020: No new recommendations for today. Please see below. 1. Continue periodic day proning and proning at night 2. Given her history of rib pain, maybe reasonable to consider weight based lovenox therapy with her as oppose to regular prophylactic dosing 3. Continue to monitor oxygen requirement closely. 4. No IVF's. encourage PO intake and try to run the patient closer to volume deplete side. Subjective Date of service: 02/02/20 Interval history: No acute events. satting 100% on 2 liters. NO fevers. Objective Vital Signs - 12hr 02/02/20 02/02/20 04:22 10:51 Temperature 98.4 F 97.6 F Pulse Rate 75 64 Respiratory 18 24 Rate Blood Pressure 109/71 99/72 O2 Sat by Pulse 94 98 Oximetry Constitutional: no acute distress, alert Eyes: non-icteric ENT: oropharynx moist Neck: supple, no JVD Effort: mildly labored Ascultation: Bilateral: clear Percussion: Bilateral: not dull Tactile fremitus: Bilateral: normal Cardiovascular: regular rate and rhythm CBC and BMP: 02/01/20 04:17 02/02/20 04:03 ABG, PT/INR, D-dimer: PT/INR, D-dimer D-Dimer 418.79 ng/mlDDU (0-234) H 02/02/20 04:03 Abnormal lab findings: Abnormal Labs 01/31/20 01/31/20 01/31/20 09:47 09:47 09:47 MCV MCH 26 L Lymph % (Auto) 11.6 L [place] % (Auto) Lymph # 0.6 L Seg Neutrophils % 81.9 H D-Dimer 354.34 H Sodium 134 L Potassium Chloride BUN Creatinine Glucose 115 H Calcium Magnesium Ferritin AST ALT Lactate Dehydrogenase 378 H C-Reactive Protein 21.30 H Albumin Coronavirus (PCR) 01/31/20 01/31/20 01/31/20 09:47 12:50 12:50 MCV MCH Lymph % (Auto) [place] % (Auto) Lymph # Seg Neutrophils % D-Dimer 363.09 H Sodium Potassium Chloride BUN Creatinine Glucose 112 H Calcium Magnesium Ferritin 645.8 H AST ALT Lactate Dehydrogenase 410 H C-Reactive Protein 22.60 H Albumin Coronavirus (PCR) 01/31/20 02/01/2001/31/20 12:50 04:17 04:17 MCV 78 L MCH 26 L Lymph % (Auto) [place] % (Auto) 8.8 H Lymph # 1.1 L Seg Neutrophils % 71.6 H D-Dimer Sodium 135 L Potassium 3.4 L Chloride 97.7 L BUN 6 L Creatinine 0.5 L Glucose 105 H Calcium 8.3 L Magnesium Ferritin 624.5 H AST ALT Lactate Dehydrogenase 346 H C-Reactive Protein 18.40 H Albumin Coronavirus (PCR) 02/01/20 02/01/20 02/02/20 04:17 07:00 04:03 MCV MCH Lymph % (Auto) [place] % (Auto) Lymph # Seg Neutrophils % D-Dimer 418.79 H Sodium Potassium Chloride BUN Creatinine Glucose Calcium Magnesium Ferritin 571.5 H AST ALT Lactate Dehydrogenase C-Reactive Protein Albumin Coronavirus (PCR) Positive A 02/02/20 04:03 MCV MCH Lymph % (Auto) [place] % (Auto) Lymph # Seg Neutrophils % D-Dimer Sodium Potassium Chloride BUN 5 L Creatinine 0.5 L Glucose 108 H Calcium 7.9 L Magnesium 2.50 H Ferritin AST 62 H ALT 80 H Lactate Dehydrogenase C-Reactive Protein Albumin 2.7 L Coronavirus (PCR)
--- NOTE | 2020-02-02 16:05 | Progress Note ---
Assessment and Plan Cultures: Blood culture 01/31/2020 pending A/P: 44-year-old female no past medical history admitted with COVID-19 #COVID-19: Patient with normal profile and previously diagnosed COVID-19. Recommend stopping antibiotics at this time. Continue supportive care for now given that she has minimal oxygen requirements. Her laboratory markers are elevated, so if she starts requiring more oxygen therapy in a short period of time will consider Actemra. Please ensure anticoagulation in place. Recs: -Continue supportive care COVID-19 -Monitor oxygen requirements, if they double to 4 L within 12 hours will consider Actemra at that time. -Follow COVID-19 labs to include LDH, ferritin, CRP, d-dimer every 48 hours to monitor for disease progression - improving. -d-dimer slightly above 1.5x UL, as such would consider weight based anti-coag with Lovenox. Thank you for the consult, we will continue to follow. Ching Reed MD [facility] M: [phone] O: [phone] F: [phone] Subjective Date of service: 02/02/20 Interval history: Patient afebrile with normal white count. No acute changes today. Remains stable and nasal cannula. Objective - Exam Narrative Exam: Physical exam deferred due to PPE conservation strategy, reviewed in chart. - Constitutional Vitals: Vital Signs Temp Pulse Resp BP Pulse Ox 97.6 F 64 24 99/72 98 02/02/20 10:51 02/02/20 10:51 02/02/20 10:51 02/02/20 10:51 02/02/20 10:51 Temperature -Last 24 Hours Temperature 97.6 F Temperature 98.4 F Temperature 98.5 F Temperature 99.6 F - Labs CBC & Chem 7: 02/01/20 04:17 02/02/20 04:03 Labs: Abnormal lab results 02/02/20 02/02/20 Range/Units 04:03 04:03 D-Dimer 418.79 H (0-234) ng/mlDDU BUN 5 L (7-17) mg/dL Creatinine 0.5 L (0.7-1.2) mg/dL Glucose 108 H (65-100) mg/dL Calcium 7.9 L (8.4-10.2) mg/dL Magnesium 2.50 H (1.7-2.3) mg/dL AST 62 H (5-40) units/L ALT 80 H (7-56) units/L Albumin 2.7 L (3.9-5) g/dL
[2020-02-02] MEDS: ENOXAPARIN 40 MG/0.4 ML INJ SUB-Q SCH (21:52)
[2020-02-03 05:55] LABS: C-Reactive Protein 8.4 mg/dL (0.00-1.30)
[2020-02-03] MEDS: ENOXAPARIN 80 MG/0.8 ML INJ SUB-Q SCH ×2 (10:42→23:30)
[2020-02-03] MEDS: FAMOTIDINE 20 MG TAB PO SCH ×2 (10:42→23:30)
--- NOTE | 2020-02-03 11:43 | Progress Note ---
Assessment and Plan 44 y/o female with positive covid test and hypoxemia. 02/03/2020: Now on weight based prophylactic anticoagulation. Continue day proning and proning at night while sleeping. Wean FiO2 for sats >88%. Will continue to follow. All other recs below. Hopeful she will be ready for discharge soon. 1. Continue periodic day proning and proning at night 2. Continue to monitor oxygen requirement closely. 3. No IVF's. encourage PO intake and try to run the patient closer to volume deplete side. Subjective Date of service: 02/03/20 Interval history: No acute events. Remains on 2 liters. Afebrile Objective Constitutional: no acute distress, alert Eyes: non-icteric ENT: oropharynx moist Neck: supple, no JVD Effort: mildly labored Ascultation: Bilateral: clear Percussion: Bilateral: not dull Tactile fremitus: Bilateral: normal Cardiovascular: regular rate and rhythm CBC and BMP: 02/01/20 04:17 02/03/20 04:39 ABG, PT/INR, D-dimer: PT/INR, D-dimer D-Dimer 418.79 ng/mlDDU (0-234) H 02/02/20 04:03 Abnormal lab findings: Abnormal Labs 01/31/20 01/31/20 01/31/20 09:47 09:47 09:47 MCV MCH 26 L Lymph % (Auto) 11.6 L [place] % (Auto) Lymph # 0.6 L Seg Neutrophils % 81.9 H D-Dimer 354.34 H Sodium 134 L Potassium Chloride BUN Creatinine Glucose 115 H Calcium Magnesium Ferritin AST ALT Lactate Dehydrogenase 378 H C-Reactive Protein 21.30 H Albumin Coronavirus (PCR) 01/31/20 01/31/20 01/31/20 09:47 12:50 12:50 MCV MCH Lymph % (Auto) [place] % (Auto) Lymph # Seg Neutrophils % D-Dimer 363.09 H Sodium Potassium Chloride BUN Creatinine Glucose 112 H Calcium Magnesium Ferritin 645.8 H AST ALT Lactate Dehydrogenase 410 H C-Reactive Protein 22.60 H Albumin Coronavirus (PCR) 01/31/20 02/01/20 02/01/20 12:50 04:17 04:17 MCV 78 L MCH 26 L Lymph % (Auto) [place] % (Auto) 8.8 H Lymph # 1.1 L Seg Neutrophils % 71.6 H D-Dimer Sodium 135 L Potassium 3.4 L Chloride 97.7 L BUN 6 L Creatinine 0.5 L Glucose 105 H Calcium 8.3 L Magnesium Ferritin 624.5 H AST ALT Lactate Dehydrogenase 346 H C-Reactive Protein 18.40 H Albumin Coronavirus (PCR) 02/01/20 02/01/20 02/02/20 04:17 07:00 04:03 MCV MCH Lymph % (Auto) [place] % (Auto) Lymph # Seg Neutrophils % D-Dimer 418.79 H Sodium Potassium Chloride BUN Creatinine Glucose Calcium Magnesium Ferritin 571.5 H AST ALT Lactate Dehydrogenase C-Reactive Protein Albumin Coronavirus (PCR) Positive A 02/02/20 02/03/20 02/03/20 04:03 04:39 04:39 MCV MCH Lymph % (Auto) [place] % (Auto) Lymph # Seg Neutrophils % D-Dimer Sodium Potassium Chloride BUN 5 L Creatinine 0.5 L Glucose 108 H 102 H Calcium 7.9 L Magnesium 2.50 H Ferritin 434.0 H AST 62 H ALT 80 H Lactate Dehydrogenase 294 H C-Reactive Protein 8.40 H Albumin 2.7 L Coronavirus (PCR)
--- NOTE | 2020-02-03 13:31 | Progress Note ---
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 11 days ago patient developed fever that was not breaking with Tylenol. Patient went to a [facility] site on January 22 and had a positive COVID test at that time. Patient has been self isolating from family members. Yesterday she developed worsening cough productive of thick sputum with dyspnea. Today she complains of significant dyspnea with walking even 10 steps. Patient noted to have a room air saturation 89% during initial triage. Patient also having intermittent right-sided rib pain described as a tightness patient denies past medical history and is a non-smoker --Positive COVID test -02/01/2020 --Acute hypoxic respiratory failure ; Oxygen titrate O2 sats to more than 90% Supportive care, pulmonary following --COVID 19+[done outside the hospital] Rpt Covid 19 test positive Contact and droplet isolation Follow inflammatory markers per protocol Coagulation profile, Pulmonary and ID following Supportive care --Acute bilateral viral pneumonia; IV fluids, oxygen, supportive care --Elevated D-dimers; more than 1.5 times normal ID recommend, Full dose anticoagulation, Lovenox 1 mg/kg body weight every 12 hours --Pleuritic chest pain related to cough-costochondritis and viral pneumonia Pain management and oxygen --Diarrhea probably secondary to COVID-19 which is also a gastro-pulmonary virus, rule out C. difficile --Mild hypotension; blood pressures in the lower range Encourage plenty oral fluids, IV fluids, monitor closely --DVT prophylaxis; Lovenox Monitor closely and adjust management as needed Possible discharge in 1 to 2 days if stable History Interval history: Patient seen and examined at the bedside this morning Patient is in isolation, COVID positive Isolation protocols and PPE protocols observed Patient complains of cough and mild shortness of breath Vital signs noted Afebrile Hospitalist Physical - Constitutional Vitals: Temp Pulse Resp BP Pulse Ox 99.1 F 59 L 20 127/79 97 02/02/20 22:14 02/02/20 22:14 02/02/20 22:14 02/02/20 22:14 02/02/20 22:14 General appearance: Present: no acute distress, well-nourished - EENT Eyes: Present: PERRL, EOM intact - Neck Neck: Present: supple, normal ROM - Respiratory Respiratory effort: normal Respiratory: bilateral: diminished, negative: rales, rhonchi, wheezing - Cardiovascular Rhythm: regular Heart Sounds: Present: S1 & S2 - Extremities Extremities: no ischemia, No edema - Abdominal General gastrointestinal: soft, non-tender, non-distended, normal bowel sounds - Integumentary Integumentary: Present: clear, warm - Psychiatric Psychiatric: appropriate mood/affect, cooperative - Neurologic Neurologic: moves all extremities Results - Labs CBC & Chem 7: 02/01/20 04:17 02/03/20 04:39 Labs: Laboratory Last Values WBC 5.6 K/mm3 (4.5-11.0) 02/01/20 04:17 RBC 4.18 M/mm3 (3.65-5.03) 02/01/20 04:17 Hgb 10.7 gm/dl (10.1-14.3) 02/01/20 04:17 Hct 32.5 % (30.3-42.9) 02/01/20 04:17 MCV 78 fl (79-97) L 02/01/20 04:17 MCH 26 pg (28-32) L 02/01/20 04:17 MCHC 33 % (30-34) 02/01/20 04:17 RDW 14.4 % (13.2-15.2) 02/01/20 04:17 Plt Count 307 K/mm3 (140-440) 02/01/20 04:17 Lymph % (Auto) 19.3 % (13.4-35.0) 02/01/20 04:17 [place] % (Auto) 8.8 % (0.0-7.3) H 02/01/20 04:17 Eos % (Auto) 0.0 % (0.0-4.3) 02/01/20 04:17 Baso % (Auto) 0.3 % (0.0-1.8) 02/01/20 04:17 Lymph # 1.1 K/mm3 (1.2-5.4) L 02/01/20 04:17 [place] # 0.5 K/mm3 (0.0-0.8) 02/01/20 04:17 Eos # 0.0 K/mm3 (0.0-0.4) 02/01/20 04:17 Baso # 0.0 K/mm3 (0.0-0.1) 02/01/20 04:17 Seg Neutrophils % 71.6 % (40.0-70.0) H 02/01/20 04:17 Seg Neutrophils # 4.0 K/mm3 (1.8-7.7) 02/01/20 04:17 D-Dimer 418.79 ng/mlDDU (0-234) H 02/02/20 04:03 Sodium 138 mmol/L (137-145) 02/02/20 04:03 Potassium 3.8 mmol/L (3.6-5.0) 02/02/20 04:03 Chloride 105.2 mmol/L (98-107) 02/02/20 04:03 Carbon Dioxide 22 mmol/L (22-30) 02/02/20 04:03 Anion Gap 15 mmol/L 02/02/20 04:03 BUN 5 mg/dL (7-17) L 02/02/20 04:03 Creatinine 0.5 mg/dL (0.7-1.2) L 02/02/20 04:03 Estimated GFR > 60 ml/min 02/02/20 04:03 BUN/Creatinine Ratio 10 % 02/02/20 04:03 Glucose 102 mg/dL (65-100) H 02/03/20 04:39 Calcium 7.9 mg/dL (8.4-10.2) L 02/02/20 04:03 Magnesium 2.50 mg/dL (1.7-2.3) H 02/02/20 04:03 Ferritin 434.0 ng/mL (13.0-400.0) H 02/03/20 04:39 Total Bilirubin 0.20 mg/dL (0.1-1.2) 02/02/20 04:03 AST 62 units/L (5-40) H 02/02/20 04:03 ALT 80 units/L (7-56) H 02/02/20 04:03 Alkaline Phosphatase 67 units/L (35-129) 02/02/20 04:03 Lactate Dehydrogenase 294 units/L (91-180) H 02/03/20 04:39 C-Reactive Protein 8.40 mg/dL (0.00-1.30) H 02/03/20 04:39 Total Protein 6.4 g/dL (6.3-8.2) 02/02/20 04:03 Albumin 2.7 g/dL (3.9-5) L 02/02/20 04:03 Albumin/Globulin Ratio 0.7 % 02/02/20 04:03 Procalcitonin 0.13 ng/mL (<0.15) 01/31/20 12:50 HCG, Qual Negative (Negative) 01/31/20 09:47 Coronavirus (PCR) Positive (Negative) A 02/01/20 07:00 Microbiology: Microbiology 01/31/20 09:47 Peripheral/Venous Blood Culture - Preliminary NO GROWTH AFTER 72 HOURS 01/31/20 09:47 Peripheral/Venous Blood Culture - Preliminary NO GROWTH AFTER 72 HOURS 01/31/20 12:50 Peripheral/Venous Blood Culture - Preliminary NO GROWTH AFTER 48 HOURS Vasquez/IV: Voiding Method Toilet IV Catheter Type [Left Hand] INT / Saline Lock Active Medications - Current Medications Current Medications: Generic Name Dose Route Start Last Admin Trade Name Freq PRN Reason Stop Dose Admin Acetaminophen 650 mg 01/31/20 10:48 Tylenol PO Q4H PRN Pain MILD(1-3)/Fever >100.5/HASKINS Albuterol 2.5 mg 01/31/20 10:48 02/01/20 01:26 Proventil IH 2.5 mg Q4HRT PRN Administration Shortness Of Breath Dextrose 50 ml 01/31/20 10:48 D50w (25gm) Syringe IV Q30MIN PRN Hypoglycemia Protocol Enoxaparin Sodium 80 mg 02/03/20 10:00 02/03/20 10:42 Enoxaparin SUB-Q 80 mg Q12HR DENICE Administration Famotidine 20 mg 01/31/20 12:00 02/03/20 10:42 Pepcid PO 20 mg BID DENICE Administration Guaifenesin 10 ml 01/31/20 12:43 02/02/20 04:22 Guaifenesin Dm Syrup PO 10 ml Q4H PRN Administration Cough Hydrocodone Bit/Homatropine Methylb 10 ml 01/31/20 14:06 02/02/20 23:54 Hydromet PO 10 ml Q6H PRN Administration Cough Loperamide HCl 2 mg 01/31/20 11:21 Imodium PO Q2H PRN Diarrhea Ondansetron HCl 4 mg 01/31/20 10:48 02/02/20 10:01 Zofran IV 4 mg Q4H PRN Administration Nausea And Vomiting Sodium Chloride 10 ml 01/31/20 22:00 02/03/20 10:46 Sodium Chloride Flush Syringe 10 Ml IV 10 ml BID DENICE Administration Sodium Chloride 10 ml 01/31/20 10:48 Sodium Chloride Flush Syringe 10 Ml IV PRN PRN LINE FLUSH Nutrition/Malnutrition Assess - Dietary Evaluation Nutrition/Malnutrition Findings: Nutrition Notes Start: 02/02/20 11:49 Freq: Status: Active Protocol: Document 02/02/20 11:50 LM (Rec: 02/02/20 11:54 LM [id number]) Nutrition Notes Need for Assessment generated from: Low BMI Initial or Follow up Brief Note Height 5 ft 5 in Weight 81 kg [place] Body Weight (kg) 56.81 BMI 29.7 Weight Status Overweight Subjective/Other Information Low BMI screen. Pt with incoreect wt in chart. Pt does not have low BMI. Pt stated she is eating well. Nutrition Intervention Revisit per MD consult or patient Sign Off request:
--- NOTE | 2020-02-03 14:51 | Progress Note ---
Assessment and Plan Cultures: Blood culture 01/31/2020 pending A/P: 44-year-old female no past medical history admitted with COVID-19 #COVID-19: Patient with normal profile and previously diagnosed COVID-19. Recommend stopping antibiotics at this time. Continue supportive care for now given that she has minimal oxygen requirements. Her laboratory markers are elevated, so if she starts requiring more oxygen therapy in a short period of time will consider Actemra. Please ensure anticoagulation in place. Recs: -Continue supportive care COVID-19 -OK for DC from ID perspective. -Follow COVID-19 labs to include LDH, ferritin, CRP, d-dimer every 48 hours to monitor for disease progression - improving. -d-dimer slightly above 1.5x UL, as such would consider weight based anti-coag with Lovenox. Thank you for the consult, we will continue to follow. Ching Reed MD [facility] M: [phone] O: [phone] F: [phone] Subjective Date of service: 02/03/20 Interval history: Patient afebrile with normal white count. No acute changes today. Remains stable and nasal cannula. Objective - Exam Narrative Exam: Physical exam deferred due to PPE conservation strategy, reviewed in chart. - Constitutional Vitals: Vital Signs Temp Pulse Resp BP Pulse Ox 98.0 F 58 L 20 107/72 98 02/03/20 11:46 02/03/20 11:46 02/03/20 11:46 02/03/20 11:46 02/03/20 11:46 Temperature -Last 24 Hours Temperature 98.0 F Temperature 99.1 F Temperature 98.4 F - Labs CBC & Chem 7: 02/01/20 04:17 02/03/20 04:39 Labs: Abnormal lab results 02/03/20 02/03/20 Range/Units 04:39 04:39 Glucose 102 H (65-100) mg/dL Ferritin 434.0 H (13.0-400.0) ng/mL Lactate Dehydrogenase 294 H (91-180) units/L C-Reactive Protein 8.40 H (0.00-1.30) mg/dL
[2020-02-03] MEDS: HYDROcodone/HOMATROPINE 5-1.5MG /5 ML ORAL LIQD UNIT DOSE PO PRN (23:30)
--- NOTE | 2020-02-04 02:47 | XRay Report ---
CHEST 1 VIEW INDICATION: f/u Osman pneumonia/positive Covid 19. COMPARISON: 01/31/2020. FINDINGS: Support devices: None. Heart: Stable cardiac enlargement. Lungs/Pleura: Lung volumes have improved patchy bilateral infiltrates remain with mild worsening. Additional findings: None. IMPRESSION: 1. Mild improving lung volumes. 2. Mild worsening lung infiltrates. Signer Name: Quinn Lieberman MD Signed: 02/04/2020 2:42 AM Workstation Name: [id number] [id number] [facility]
[2020-02-04 06:45] VITALS: BP 120/80
--- NOTE | 2020-02-04 09:05 | Progress Note ---
Assessment and Plan 44 y/o female with positive covid test and hypoxemia. 02/04/2020: Needs in room walk test off oxygen to see if she desats. If she stays above 88%, no home O2 is needed. Inna pineda, I too am ok with discharge even if patient needs oxygen. She should continue to prone at home as much as possible, even if she does not require O2 at discharge. Continue self isolation. We can see her in the office in weeks for follow up and repeat CXR 02/03/2020: Now on weight based prophylactic anticoagulation. Continue day proning and proning at night while sleeping. Wean FiO2 for sats >88%. Will continue to follow. All other recs below. Hopeful she will be ready for discharge soon. 1. Continue periodic day proning and proning at night 2. Continue to monitor oxygen requirement closely. 3. No IVF's. encourage PO intake and try to run the patient closer to volume deplete side. Subjective Date of service: 02/04/20 Interval history: Remains on 2 liters but with good sats. Reviewed ID note from yesterday. No fevers documented. Objective Vital Signs - 12hr 02/03/20 02/03/20 02/04/20 22:00 22:24 05:02 Temperature 98.0 F 97.7 F Pulse Rate 58 L 50 L Respiratory 18 16 Rate Blood Pressure 134/81 120/80 O2 Sat by Pulse 98 95 98 Oximetry 02/04/20 08:22 Temperature Pulse Rate Respiratory Rate Blood Pressure O2 Sat by Pulse 98 Oximetry Constitutional: no acute distress, alert Eyes: non-icteric ENT: oropharynx moist Neck: supple, no JVD Effort: mildly labored Ascultation: Bilateral: clear Percussion: Bilateral: not dull Tactile fremitus: Bilateral: normal Cardiovascular: regular rate and rhythm CBC and BMP: 02/01/20 04:17 02/03/20 04:39 ABG, PT/INR, D-dimer: PT/INR, D-dimer D-Dimer 452.11 ng/mlDDU (0-234) H 02/04/20 05:11 Abnormal lab findings: Abnormal Labs 01/31/20 01/31/20 01/31/20 09:47 09:47 09:47 MCV MCH 26 L Lymph % (Auto) 11.6 L [place] % (Auto) Lymph # 0.6 L Seg Neutrophils % 81.9 H D-Dimer 354.34 H Sodium 134 L Potassium Chloride BUN Creatinine Glucose 115 H Calcium Magnesium Ferritin AST ALT Lactate Dehydrogenase 378 H C-Reactive Protein 21.30 H Albumin Coronavirus (PCR) 01/31/20 01/31/20 01/31/20 09:47 12:50 12:50 MCV MCH Lymph % (Auto) [place] % (Auto) Lymph # Seg Neutrophils % D-Dimer 363.09 H Sodium Potassium Chloride BUN Creatinine Glucose 112 H Calcium Magnesium Ferritin 645.8 H AST ALT Lactate Dehydrogenase 410 H C-Reactive Protein 22.60 H Albumin Coronavirus (PCR) 01/31/20 02/01/20 02/01/20 12:50 04:17 04:17 MCV 78 L MCH 26 L Lymph % (Auto) [place] % (Auto) 8.8 H Lymph # 1.1 L Seg Neutrophils % 71.6 H D-Dimer Sodium 135 L Potassium 3.4 L Chloride 97.7 L BUN 6 L Creatinine 0.5 L Glucose 105 H Calcium 8.3 L Magnesium Ferritin 624.5 H AST ALT Lactate Dehydrogenase 346 H C-Reactive Protein 18.40 H Albumin Coronavirus (PCR) 02/01/20 02/01/20 02/02/20 04:17 07:00 04:03 MCV MCH Lymph % (Auto) [place] % (Auto) Lymph # Seg Neutrophils % D-Dimer 418.79 H Sodium Potassium Chloride BUN Creatinine Glucose Calcium Magnesium Ferritin 571.5 H AST ALT Lactate Dehydrogenase C-Reactive Protein Albumin Coronavirus (PCR) Positive A 02/02/20 02/03/20 02/03/20 04:03 04:39 04:39 MCV MCH Lymph % (Auto) [place] % (Auto) Lymph # Seg Neutrophils % D-Dimer Sodium Potassium Chloride BUN 5 L Creatinine 0.5 L Glucose 108 H 102 H Calcium 7.9 L Magnesium 2.50 H Ferritin 434.0 H AST 62 H ALT 80 H Lactate Dehydrogenase 294 H C-Reactive Protein 8.40 H Albumin 2.7 L Coronavirus (PCR) 02/04/20 05:11 MCV MCH Lymph % (Auto) [place] % (Auto) Lymph # Seg Neutrophils % D-Dimer 452.11 H Sodium Potassium Chloride BUN Creatinine Glucose Calcium Magnesium Ferritin AST ALT Lactate Dehydrogenase C-Reactive Protein Albumin Coronavirus (PCR)
[2020-02-04] MEDS: FAMOTIDINE 20 MG TAB PO SCH (09:54)
[2020-02-04] MEDS: ENOXAPARIN 80 MG/0.8 ML INJ SUB-Q SCH (09:54)
--- NOTE | 2020-02-04 12:41 | Discharge Summary ---
Providers - Providers Date of Admission: 01/31/20 10:44 Date of discharge: 02/04/20 Attending physician: TIGIST GUAJARDO 01/31/20 10:48 Consult to Physician [CONS] Routine Comment: Consulting Provider: CRISTIANO PAGE Physician Instructions: Reason For Exam: COVID + 01/31/20 11:19 Consult to Physician [CONS] Routine Comment: Consulting Provider: DOUG ALMEIDA Physician Instructions: Reason For Exam: Pneumonia- COVID 19 Primary care physician: LATRINE CLEANER Hospitalization Condition: Stable Disposition: DC-01 TO HOME OR SELFCARE Time spent for discharge: 32min Core Measure Documentation - Palliative Care Palliative Care/ Comfort Measures: Not Applicable - Core Measures Any of the following diagnoses?: none Exam - Constitutional Vitals: Temp Pulse Resp BP Pulse Ox 97.7 F 50 L 16 120/80 98 02/04/20 05:02 02/04/20 05:02 02/04/20 05:02 02/04/20 05:02 02/04/20 08:22 General appearance: Present: no acute distress, well-nourished - EENT Eyes: Present: PERRL, EOM intact - Neck Neck: Present: supple, normal ROM - Respiratory Respiratory effort: normal Respiratory: bilateral: diminished, rhonchi, negative: rales, wheezing - Extremities Extremities: no ischemia, pulses intact - Abdominal General gastrointestinal: Present: soft, non-tender, non-distended, normal bowel sounds - Integumentary Integumentary: Present: clear, warm - Musculoskeletal Musculoskeletal: strength equal bilaterally, generalized weakness - Psychiatric Psychiatric: appropriate mood/affect, cooperative - Neurologic Neurologic: moves all extremities Plan Activity: advance as tolerated Diet: regular Additional Instructions: Follow-up PMD in 1 week. Advised to follow COVID isolation protocol. Check with health department/private ID/PMD if you have any questions or concerns Follow up with: PRIMARY MD SHARON [Primary Care Provider] - 3-5 Days CHINEDU PENDLETON MD [Staff Physician] - 7 Days Prescriptions: Famotidine [Pepcid] 20 mg PO BID #30 tablet Albuterol INH(or & Nicu Only) [ProAir HFA Inhaler] 2 puff IH QID PRN #8.5 gram PRN Reason: Shortness Of Breath guaiFENesin/CODEINE [Robitussin AC] 5 ml PO QID PRN 10 Days udc PRN Reason: Cough
--- NOTE | 2020-02-04 14:41 | Progress Note ---
Assessment and Plan Cultures: Blood culture 01/31/2020 pending A/P: 44-year-old female no past medical history admitted with COVID-19 #COVID-19: Patient with normal profile and previously diagnosed COVID-19. Recommend stopping antibiotics at this time. Continue supportive care for now given that she has minimal oxygen requirements. Her laboratory markers are elevated, so if she starts requiring more oxygen therapy in a short period of time will consider Actemra. Please ensure anticoagulation in place. Recs: -Continue supportive care COVID-19 -OK for DC from ID perspective. -Follow COVID-19 labs to include LDH, ferritin, CRP, d-dimer every 48 hours to monitor for disease progression - improving. -No need for anti-coagulation on DC as d-dimer <2x UL of normal, and no major risk factors fro DVT. Thank you for the consult, we will sign off. Ching Reed MD [facility] M: [phone] O: [phone] F: [phone] Subjective Date of service: 02/04/20 Interval history: Patient afebrile with normal white count. No acute changes today. Remains stable and nasal cannula. For discharge today Objective - Exam Narrative Exam: Physical exam deferred due to PPE conservation strategy, reviewed in chart. - Constitutional Vitals: Vital Signs Temp Pulse Resp BP Pulse Ox 97.7 F 50 L 16 120/80 98 02/04/20 05:02 02/04/20 05:02 02/04/20 05:02 02/04/20 05:02 02/04/20 08:22 Temperature -Last 24 Hours Temperature 97.7 F Temperature 98.0 F Temperature 97.7 F - Labs CBC & Chem 7: 02/01/20 04:17 02/03/20 04:39 Labs: Abnormal lab results 02/04/20 Range/Units 05:11 D-Dimer 452.11 H (0-234) ng/mlDDU
== END 2020-02-04 16:09 | disposition home or self-care (01) | DRG 177 ==
LOC: ED 07:44 → 3A 10:44 → IMCU 02-02 12:19 → 3A 02-02 12:20 → IMCU 02-02 12:43
PROVIDERS: ADMIT Internal Medicine; ATTEND Internal Medicine
DX: U07.1 COVID-19 (principal); J96.01 Acute respiratory failure with hypoxia; J12.89 Other viral pneumonia; M94.0 Chondrocostal junction syndrome [Tietze]; R19.7 Diarrhea, unspecified; I95.9 Hypotension, unspecified
CPT/HCPCS: 36415; 71045; 80048; 80053; 82728; 82947; 83615; 83735; 84145; 84703; 85025; 85379; 86140; 87040; 94640; 94760; G0378; J0456; J0696; J1650; J2405; J7030; J7050; U0003